=== PATIENT | male | born 1985 | race Caucasian/White ===

== ENCOUNTER 2022-10-01 00:44 | Emergency (ER) | payer OTHER ==
[2022-10-01] VITALS (9 sets, daily range): BP systolic 138–166; BP diastolic 84–108
[~2022-10-01] VITALS: Ht 165.1 cm; Wt 125.0 kg
[2022-10-01 01:44] LABS: BASO% 0.5 % (0-3); HEMATOCRIT 48.7 % (39.0-50.0); HEMOGLOBIN 16.3 g/dl (14.0-18.0); IMMATURE GRANULOCYTES 0.5 % (0.0-5.0); LYMPH% 19.6 % (15-41); MEAN CELL VOLUME 94.9 fL CALC (80.0-100.0); MEAN CORPUSCULAR HGB 31.8 pG CALC (26.0-32.0); MEAN CORPUSCULAR HGB CONC 33.5 g/dL CAL (32.0-36.0); MONO% 5.2 % (2-13); NEUT# 4.16 thou/uL (1.82-7.42); NEUT% 74.2 % (42-76); RED BLOOD COUNT 5.13 mill/uL (4.70-6.10); RED CELL DISTRI WIDTH 12.4 % (11.5-15.5)
[2022-10-01 02:05] LABS: ALBUMIN 5.1 g/dL (3.2-5.0); ALKALINE PHOSPHATASE 150 u/l (38-126); ANION GAP 17 (6-22 (CALC)); BILIRUBIN, TOTAL 0.8 mg/dL (0.2-1.3); BUN 11 mg/dL (9-20); BUN/CREATININE RATIO 14 (12-20 (CALC)); CARBON DIOXIDE 30 mmol/l (22-30); CHLORIDE 104 mmol/l (95-108); CREATININE 0.8 mg/dL (0.7-1.3); GFR FOR AFR.AMER. > 60 ML/MIN (>=60 (CALC)); GFR OTHER RACES > 60 ML/MIN (>=60 (CALC)); POTASSIUM 4.4 mmol/l (3.5-5.1); SGOT/AST 476 u/l (17-59); SODIUM 147 mmol/l (137-146); TOTAL PROTEIN 8.5 g/dL (6.3-8.2)
[2022-10-01] MEDS ORDERED: XANAX0.25 MG PO (02:26)
[2022-10-01] MEDS ORDERED: LEVOFLOXACIN500MG PO (02:27)
[2022-10-01] MEDS ORDERED: MILLIPRED5 M1 PO (02:28)
[2022-10-01 04:16] LABS: URINE BILIRUBIN - DIPSTICK NEGATIVE (NEGATIVE); URINE BLOOD DIPSTICK MODERATE (NEGATIVE); URINE COLOR YELLOW; URINE GLUCOSE - DIPSTICK NEGATIVE (NEGATIVE); URINE KETONE NEGATIVE (NEGATIVE); URINE PROTEIN - DIPSTICK 30 mg/dL (NEG-TRACE); URINE UROBILINOGEN - DIPSTICK 0.2 E.U./dL (0.2)
[2022-10-01 04:22] LABS: URINE LEUK ESTERASE NEGATIVE (NEGATIVE); URINE NITRITE - DIPSTICK NEGATIVE (Negative)
[2022-10-01 04:25] LABS: URINE BACTERIA FEW hpf; URINE EPITHELIAL CELLS FEW EPI/hpf (0-FEW); URINE RBC 25-50 RBC/hpf (0-5); URINE WBC 0-2 WBC/hpf (0-5)
== END 2022-10-01 08:46 | disposition home or self-care (01) | DRG 897 ==
LOC: ED 00:44
PROVIDERS: Emergency Medicine
DX: F10.129 Alcohol abuse with intoxication, unspecified (principal); I10 Essential (primary) hypertension; F41.9 Anxiety disorder, unspecified; F32.A Depression, unspecified; S30.1XXA Contusion of abdominal wall, initial encounter; S20.221A Contusion of right back wall of thorax, initial encounter; W19.XXXA Unspecified fall, initial encounter; T43.296A Underdosing of other antidepressants, initial encounter; Z91.128 Patient's intentional underdosing of medication regimen for other reason; Y90.8 Blood alcohol level of 240 mg/100 ml or more
CPT/HCPCS: Q9967

== ENCOUNTER 2024-05-03 13:39 | Emergency (ER) | payer SELFPAY ==
[~2024-05-03] VITALS: Ht 165.1 cm; Wt 61.0 kg
[~2024-05-03 13:39] MED LIST: LEVOFLOXACIN500MG PO; MILLIPRED5 M1 PO; XANAX0.25 MG PO
[2024-05-03] MEDS ORDERED: TRAMADOL HYDROC50 M1 PO (17:54)
[2024-05-03] MEDS ORDERED: NAPROXEN500 MG PO (17:54)
[2024-05-03 18:25] VITALS: BP 123/75
== END 2024-05-03 18:25 | disposition home or self-care (01) | DRG 563 ==
LOC: ED 13:39
DX: S42.032A Displaced fracture of lateral end of left clavicle, initial encounter for closed fracture (principal); I10 Essential (primary) hypertension; V18.0XXA Pedal cycle driver injured in noncollision transport accident in nontraffic accident, initial encounter; Y93.55 Activity, bike riding